=== PATIENT | male | born 1950 ===

== ENCOUNTER 2017-01-19 10:19 | Outpatient (CLI) | payer BC ==
--- NOTE | 2017-01-19 11:34 | XRay Report ---
Cervical spine: Neck pain. AP and lateral views of demonstrates anterior and posterior spondylosis at the inferior margin of C5 and superior margin of C6 with moderate narrowing of the interspace. Minimal posterior spurring is also identified at the C6-7 level. The vertebral height, alignment, and interspaces are otherwise unremarkable. No prevertebral swelling. The bones are well-mineralized. Impressions: Degenerative changes predominantly at C5-6. Lumbar spine: The Back pain. AP and lateral views demonstrates diffuse spondylosis throughout the lumbar and lower thoracic levels. There is a slight retrolisthesis of L1 on L2 as well as L2 on L3. The interspaces between L3-4 and L4-5 are somewhat difficult to clearly assess due to a rotational dextroscoliosis of the midlumbar spine however there is strong suspicion that these interspaces are narrowed. The vertebral height is well-maintained. The bones do appear slightly decreased in mineralization. No acute findings identified Impression: L1 and L2 retrolistheses. Diffuse spondylosis. Suspicion of significant L3-4 and L4-5 discogenic narrowing. Dextroscoliosis.
== END 2017-01-19 10:20 | disposition home or self-care (01) ==
LOC: SPVIMAG 10:19
PROVIDERS: ATTEND Internal Medicine
DX: M47.812 Spondylosis without myelopathy or radiculopathy, cervical region (principal); M47.895 Other spondylosis, thoracolumbar region; M41.86 Other forms of scoliosis, lumbar region
CPT/HCPCS: 72040; 72100